=== PATIENT | male | born 1960 | race Caucasian/White ===

== ENCOUNTER 2023-01-29 12:50 | Emergency (ER) | payer BC ==
[2023-01-29] MEDS ORDERED: IPRATROPIUM/ALBUTEROL 3 ML NEB INH STA (13:36)
--- NOTE | 2023-01-29 13:55 | XRAY Report ---
PROCEDURE: Chest 2 View X-Ray INDICATIONS: wheeze/cough TECHNIQUE: 2 views of the chest were acquired. COMPARISON: None. FINDINGS: Surgical changes and devices: None. Lungs and pleura: No pleural effusions or pneumothorax. Lungs are clear. Mediastinum: Mediastinal contours appear normal. Heart size is normal. Bones and chest wall: No suspicious bony lesions. Overlying soft tissues appear unremarkable. IMPRESSION: No acute cardiopulmonary process. Reviewed by: Mando Rondon MD on 01/29/2023 1:54 PM PDT Approved by: Mando Rondon MD on 01/29/2023 1:54 PM PDT Station ID: [id number]
--- NOTE | 2023-01-29 14:05 | ED Physician Documentation ---
History of Present Illness - Stated complaint Stated Complaint: WHEEZING/SOA - Chief complaint Chief Complaint: Resp - Additonal information Additional information: 62-year-old male presents emergency department for evaluation of several weeks of shortness of air. He states he was a longtime cannabis user. He also works in the [employer] around a lot of silica without using a respirator. He was seen a local walk-in clinic several weeks ago and had some resolution of the symptoms after a course of steroids. However over the last several days he is having to use his rescue inhaler/Ventolin 4-6 times a day. He is scheduled to establish w ith a primary care provider on 09 March. Review of Systems Constitutional: denies: Fever, Chills Ears: reports: Reviewed and negative Throat: reports: Reviewed and negative Cardiac: denies: Chest pain / pressure, Palpitations Respiratory: reports: Dyspnea, Cough. denies: Hemoptysis, Wheezing GI: reports: Reviewed and negative : reports: Reviewed and negative Skin: reports: Reviewed and negative PD PAST MEDICAL HISTORY - Past Medical History Past Medical History: No Cardiovascular: None Respiratory: None Neuro: None Endocrine/Autoimmune: None GI: None : None HEENT: None Psych: None Musculoskeletal: None Derm: None - Past Surgical History Past Surgical History: No - Present Medications Home Medications: Ambulatory Orders Medication Instructions Recorded Confirmed Albuterol Sulfate [Proventil Hfa] 1 - 2 puffs IH QID PRN 01/29/23 01/29/23 Fluticasone/Salmeterol [Advair 1 each IH BID #1 each 01/29/23 250-50 Diskus] - Allergies Allergies/Adverse Reactions: Allergies Allergy/AdvReac Type Severity Reaction Status Date / Time No Known Drug Allergies Allergy Verified 01/29/23 13:05 - Social History Does the pt smoke?: No Smoking Status: Never smoker Does the pt drink ETOH?: No Does the pt have substance abuse?: No - Immunizations Immunizations are current?: No - POLST Patient has POLST: No PD ED PE NORMAL - General General: Alert and oriented X 3, No acute distress - HEENT HEENT: Atraumatic, Moist mucous membranes - Neck Neck: Supple, no meningeal sign, No adenopathy - Cardiac Cardiac: RRR, No murmur - Respiratory Respiratory: No respiratory distress. No: Clear bilaterally (Very faint scattered posterior expiratory wheezes. Room air saturations 98%. 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 Eye Opening: Spontaneous Motor: Obeys Commands Verbal: Oriented GCS Score: 15 Results - Vitals Vitals: Vital Signs - 24 hr 01/29/23 13:00 Temperature 36.6 C Heart Rate 79 Respiratory 19 Rate Blood Pressure 175/101 H O2 Saturation 96 Oxygen O2 Source Room air - Rads (name of study) cxr Relevant Findings:: Final report received (No acute cardiopulmonary process) PD Medical Decision Making - ED course Complexity details: reviewed results, re-evaluated patient, d/w patient, d/w family ED course: 62-year-old male who has a long tobacco history as well as history of working in [employer] presents the emergency department with persistent cough and shortness of air. Seen a local walk-in clinic several weeks ago felt the symptoms resolved after the use of short course of steroids. However since then he has been having to use his Ventolin inhaler 4-6 times a day. On presentation to the emergency department he appears remarkably well. He does have some faint scattered posterior expiratory wheezes but no hypoxia. Given his history I suspect he is likely developing some COPD. I feel he would likely benefit from an inhaled steroid we will start the patient on Advair twice daily. A chest x- ray of his lungs today did not show any findings suggestive of pneumonia, pneumothorax or pleural effusion. Patient will be discharged home in stable condition. He is scheduled to establish with primary care doctor on 09 March. The usual emergent return precautions were discussed Departure - Departure Disposition: Home, Self Care Clinical Impression: Mild chronic obstructive pulmonary disease Dyspnea Qualifiers: Dyspnea type: unspecified Qualified Code(s): R06.00 - Dyspnea, unspecified Condition: Stable Record reviewed to determine appropriate education?: Yes Prescriptions: Fluticasone/Salmeterol [Advair 250-50 Diskus] 1 each IH BID #1 each Comments: As discussed at the bedside based on your history I suspect that you may be developing some COPD which can cause some chronic morning time cough as well as shortness of air especially at nighttime. I am sending a prescription for A dvair and inhaled steroid and breathing medication to [facility] in [place]. When you see your primary care doctor on 09 March you can discuss this ED visit. They may elect to do further pulmonary testing. While using the Advair which she will take twice daily I would expect that you will have reduced cough and shortness of air and reduce need to use the Ventolin over the next several weeks. Return immediately to the ER if you find that your symptoms are worsening
[2023-01-29 14:30] VITALS: BP 132/79
== END 2023-01-29 14:28 | disposition home or self-care (01) ==
LOC: ED 12:50
DX: J44.9 Chronic obstructive pulmonary disease, unspecified (principal)
CPT/HCPCS: 94640; 94664; 99283; 99284

== ENCOUNTER 2023-04-01 07:12 | Outpatient (CLI) | payer BC ==
[2023-04-01 12:37] LABS: BASOPHILS # (AUTO) 0.1 10^3/uL (0.0-0.1); BASOPHILS % (AUTO) 1.7 %; EOSINOPHILS # (AUTO) 0.4 10^3/uL (0.0-0.7); EOSINOPHILS % (AUTO) 5.2 %; HGB - HEMOGLOBIN 15.5 g/dL (14.0-18.0); LYMPHOCYTES # (AUTO) 1.7 10^3/uL (1.5-3.5); MEAN CORPUSCULAR HEMOGLOBIN 31.1 pg (27.0-31.0); MEAN CORPUSCULAR VOLUME 94.2 fL (80.0-94.0); MEAN PLATELET VOLUME 10.8 fL (7.4-11.4); MONOCYTES # (AUTO) 0.9 10^3/uL (0.0-1.0); MONOCYTES % (AUTO) 11.2 %; NEUTROPHILS # (AUTO) 4.5 10^3/uL (1.5-6.6); NEUTROPHILS % (AUTO) 59.5 %; PLT - PLATELET COUNT 351 10^3/uL (130-450); RED BLOOD COUNT 4.99 10^6/uL (4.70-6.10); RED CELL DISTRIBUTION WIDTH 12.2 % (12.0-15.0); WHITE BLOOD COUNT 7.6 x10^3/uL (4.8-10.8)
[2023-04-01 13:05] LABS: ALBUMIN 4.4 g/dL (3.2-5.5); ALBUMIN/GLOBULIN RATIO 1.5 (1.0-2.2); ALKALINE PHOSPHATASE 81 IU/L (42-121); ALT ALANINE AMINOTRANSFERASE 15 IU/L (10-60); AST ASPARTATE AMINOTRANSFERASE 16 IU/L (10-42); BILIRUBIN,TOTAL 0.5 mg/dL (0.2-1.0); BUN - BLOOD UREA NITROGEN 13 mg/dL (6-20); CALCIUM 9.5 mg/dL (8.5-10.3); CARBON DIOXIDE - CO2 27 mmol/L (21-32); CHLORIDE 105 mmol/L (101-111); CHOL/HDL RATIO 3.9 (<5.0); CHOLESTEROL 184 mg/dL; CREATININE 0.9 mg/dL (0.6-1.3); GFR - MDRD 85 (>89); GLUCOSE 114 mg/dL (74-104); HDL CHOLESTEROL 47 mg/dL; LDL CHOLESTEROL,CALCULATED 100 mg/dL; LDL/HDL RATIO 2.1 (<3.6); POTASSIUM 4.3 mmol/L (3.5-4.5); SODIUM 136 mmol/L (135-145); TOTAL PROTEIN 7.4 g/dL (6.4-8.9); TRIGLYCERIDES 184 mg/dL (48-352); VLDL CHOLESTEROL 37 mg/dL
[2023-04-01 13:09] LABS: THYROID STIMULATING HORMONE 2.51 uIU/mL (0.34-5.60)
== END 2023-04-01 07:13 | disposition home or self-care (01) ==
LOC: LAB.N 07:12
PROVIDERS: ATTEND Physician Assistant
DX: Z13.9 Encounter for screening, unspecified (principal)
CPT/HCPCS: 36415; 80053; 80061; 83721; 84153; 84443; 85025